=== PATIENT | male | born 1945 | race Caucasian/White ===

== ENCOUNTER 2016-11-14 05:45 | Day surgery (SDC) | payer OTHER ==
[~2016-11-14 05:45] MED LIST: LIDOCAINE W/ SODIUM BICARB 0.5 ML SYR ONE; Lactated Ringers 1,000 ML PRIMARY IV ONE
[2016-11-14] MEDS ORDERED: fentaNYL Inj 100 MCG/2 ML VIAL IVP ONE (06:00)
[2016-11-14] MEDS ORDERED: MIDAZOLAM 5 MG/1 ML IV ONE (06:00)
[2016-11-14 07:43] VITALS: RESP 14; TEMP 97.1
== END 2016-11-14 07:38 | disposition home or self-care (01) ==
LOC: SDSC 05:45
PROVIDERS: ATTEND Ophthalmology
DX: H25.11 Age-related nuclear cataract, right eye (principal)
CPT/HCPCS: 00142; 66984; J3010; J2250; J7120